=== PATIENT | male | born 1970 | race Native Hawaiian/Other Pacific Islander ===

== ENCOUNTER 2020-01-09 16:45 | Outpatient (CLI) | payer OTHER | END 2020-01-09 22:50 | disposition home or self-care (01) | LOC: LAB 16:45 | PROVIDERS: ATTEND Nurse Practitioner Family | DX: J02.9 Acute pharyngitis, unspecified (principal); L53.9 Erythematous condition, unspecified | CPT/HCPCS: 87081 ==

== ENCOUNTER 2020-05-17 18:50 | Emergency (ER) | payer OTHER ==
[~2020-05-17] VITALS: Ht 185.4 cm; Wt 140.6 kg
[2020-05-17 20:18] VITALS: BP 136/82; TEMP 99
== END 2020-05-17 20:18 | disposition home or self-care (01) ==
LOC: ED 18:50
DX: S30.813A Abrasion of scrotum and testes, initial encounter (principal); X58.XXXA Exposure to other specified factors, initial encounter; Y92.89 Other specified places as the place of occurrence of the external cause
CPT/HCPCS: 99282